=== PATIENT | female | born 1965 | race Caucasian/White ===

== ENCOUNTER → 2024-01-15 13:37 | Outpatient (BNVA) | payer BC, SELFPAY | DX: Z12.39 Encounter for other screening for malignant neoplasm of breast (principal); I10 Essential (primary) hypertension | CPT/HCPCS: 80053; 85025; 93005 ==

== ENCOUNTER 2024-04-13 15:27 | Outpatient (CLI) | payer MEDICAID, SELFPAY ==
[2024-04-13 16:00] LABS: Basophils # 0.1 10^3/uL (0.0-0.1); Basophils % 0.5 %; Eosinophils # 0.2 10^3/uL (0.0-0.8); Eosinophils % 0.9 %; Hematocrit 46.7 % (36-47); Lymphocytes # 5.4 10^3/uL (0.8-4.8); Lymphocytes % 29.7 %; Mean Corpuscular Hemoglobin 31.2 pg (27-33); Mean Corpuscular Volume 94.5 fl (85-98); Mean Platelet Volume 9.7 fL (7.4-10.4); Monocytes # 0.9 10^3/uL (0.2-0.9); Monocytes % 4.7 %; Neutrophils # 11.53 10^3/uL (1.8-7.7); Neutrophils % 63.4 %; Nucleated Red Blood Cells % 0 %; Platelet Count 420 10^3/cmm (157-399); Red Blood Count 4.94 10^6/uL (3.85-5.65); Red Cell Distribution Width 13.5 % (12.1-15.1); White Blood Count 18.19 10^3/uL (3.29-11.43)
[2024-04-13 16:09] LABS: Erythrocyte Sedimentation Rate 28 mm/hr (0-15)
[2024-04-13 16:29] LABS: D Dimer 0.32 ug/mLFEU (0-0.59)
[2024-04-13 16:44] LABS: Slide Review Slide Review Perform
[2024-04-13 16:48] LABS: 25 Hydroxy Vitamin D 28 ng/mL (30-100); Alanine Aminotransferase 21 U/L (0-33); Albumin Level 4.6 g/dL (3.5-5.2); Alkaline Phosphatase 105 U/L (35-105); Aspartate Amino Transferase 17 U/L (0-32); Blood Urea Nitrogen 12 mg/dL (6-20); Calcium 9.1 mg/dL (8.5-10.5); Carbon Dioxide 23 mmol/L (22-29); Chloride 105 mmol/L (98-107); Globulin 2.2 g/dL (1.3-4.6); Glomerular Filtration Rate 86.6 mL/min (90-130); Glucose 98 mg/dL (65-115); Osmolality Calculated 292 mOsm/kg (285-295); Sodium 141 mmol/L (136-145); Total Bilirubin 0.3 mg/dL (0.15-1.2); Total Protein 6.8 g/dL (6.6-8.7)
[2024-04-14 13:04] LABS: COMPLEMENT COMPONENT C3C 165 mg/dL (83-193); COMPLEMENT COMPONENT C4C 31 mg/dL (15-57)
[2024-04-15 07:39] LABS: CENTROMERE B ANTIBODY <1.0 NEG AI (<1.0 NEG); JO-1 ANTIBODY <1.0 NEG AI (<1.0 NEG); RNP ANTIBODY <1.0 NEG AI (<1.0 NEG); SCL-70 ANTIBODY <1.0 NEG AI (<1.0 NEG); SJOGREN'S ANTIBODY (SS-A) <1.0 NEG AI (<1.0 NEG); SM ANTIBODY <1.0 NEG AI (<1.0 NEG); SS-B <1.0 NEG AI (<1.0 NEG)
[2024-04-15 15:18] LABS: COMPLEMENT, TOTAL (CH50) 56 U/mL (31-60)
== END 2024-04-13 15:28 | disposition home or self-care (01) ==
LOC: LAB 15:30
DX: I10 Essential (primary) hypertension (principal); R06.02 Shortness of breath; R21 Rash and other nonspecific skin eruption
CPT/HCPCS: 36415; 80053; 82306; 84443; 85025; 85378; 85651; 86160; 86162; 86235; 86255; 86376; 86431

== ENCOUNTER 2024-04-29 09:52 | Outpatient (CLI) | payer MEDICAID, SELFPAY ==
--- NOTE | 2024-04-29 10:00 | CT_ITS ---
WS: [id number] LDCT LUNG CANCER SCREENING TECHNIQUE: Noncontrast CT of the chest with coronal and sagittal reformatted images. CLINICAL INFORMATION: screening COMPARISON: None. DLP: 56.02 mGy.cm DIvol: Mean CTDIvol: 1.20 (mGy) All CT scans at [facility] use at least one of these dose optimization techniques: automat ed exposure control; mA and/or kV adjustment per patient size (includes targeted exams where dose is matched to clinical indication); or iterative reconstruction. FINDINGS: A few tiny nodules along the RIGHT fissure and LEFT upper lobe. No suspicious pulmonary parenchymal a bnormalities. No mediastinal or hilar lymphadenopathy. No axillary lymphadenopathy. Mild thoracic cur ve. Moderate thoracic kyphosis. Slight bibasilar atelectasis. Cholecystectomy clips. Adrenal glands are normal. Small esophageal hiatal hernia. CT/CT lung screening [id number] IMPRESSION: LUNG-RADS: 2-Benign Appearance or Behavior FOLLOW UP: 12 Month: Continue annual screening with LDCT
== END 2024-04-29 09:53 | disposition home or self-care (01) ==
LOC: RAD 09:52
DX: Z12.2 Encounter for screening for malignant neoplasm of respiratory organs (principal); R91.8 Other nonspecific abnormal finding of lung field; M40.204 Unspecified kyphosis, thoracic region; Z90.49 Acquired absence of other specified parts of digestive tract; K44.9 Diaphragmatic hernia without obstruction or gangrene; F17.200 Nicotine dependence, unspecified, uncomplicated; R06.02 Shortness of breath
CPT/HCPCS: 71271

== ENCOUNTER 2024-05-18 09:33 | Outpatient (CLI) | payer MEDICAID, SELFPAY ==
--- NOTE | 2024-05-18 09:39 | XR_ITS ---
WS: [email or web address] Exam: XR hand LT min 3V* [id number] Date/Time of Exam: 05/18/2024 9:42 AM Reason For Exam: bilateral hand pain No acute fracture. Advanced degenerative changes in the IP joints most severe in the DIP joints. No s oft tissue foreign bodies. XR/XR hand LT min 3V* [id number] IMPRESSION: 1. Moderately advanced degenerative changes most severe involving the DIP joint s.
--- NOTE | 2024-05-18 09:39 | XR_ITS ---
WS: [email or web address] Exam: XR shoulder RT min 2V* [id number] Date/Time of Exam: 05/18/2024 9:42 AM Reason For Exam: right shoulder pain No acute fracture. Moderate degenerative change and arthrosis at the AC joint. Soft tissues are unrem arkable. XR/XR shoulder RT min 2V* [id number] IMPRESSION: 1. Moderate AC joint DJD.
--- NOTE | 2024-05-18 09:39 | XR_ITS ---
WS: [email or web address] Exam: XR KUB [id number] Date/Time of Exam: 05/18/2024 9:42 AM Reason For Exam: bloating No bowel obstruction or free air. No sign of organ enlargement. Signs of prior cholecystectomy. Bony structures are intact. Pelvic calcifications noted probably phleboliths. Faint curvilinear opacity in the RIGHT pelvis may represent vascular calcification but nonspecific. XR/XR KUB [id number] IMPRESSION: 1. No acute abdominal finding.
--- NOTE | 2024-05-18 09:39 | XR_ITS ---
WS: [email or web address] Exam: XR hand RT min 3V* [id number] Date/Time of Exam: 05/18/2024 9:42 AM Reason For Exam: bilateral hand pain No acute fracture. Moderately advanced degenerative changes of the IP joints most severe involving th e DIP joints. No soft tissue foreign bodies are seen. Old avulsion fracture of the ulnar styloid. XR/XR hand RT min 3V* [id number] IMPRESSION: 1. Moderately advanced degenerative changes most severe involving the DIP joint s of all 5 digits. No fractures.
== END 2024-05-18 09:34 | disposition home or self-care (01) ==
LOC: RAD 09:34
DX: M19.011 Primary osteoarthritis, right shoulder (principal); M19.041 Primary osteoarthritis, right hand; M19.042 Primary osteoarthritis, left hand; R14.0 Abdominal distension (gaseous); R76.8 Other specified abnormal immunological findings in serum; M06.9 Rheumatoid arthritis, unspecified
CPT/HCPCS: 73030; 73130; 74018

== ENCOUNTER 2024-06-01 08:20 | Outpatient (CLI) | payer MEDICAID, SELFPAY ==
[2024-06-01] MEDS: iohexol 350 mg/mL 500 mL Btl (per mL) IV (09:30)
[2024-06-01] MEDS: iohexol 350 mg/mL 500 mL Btl (per mL) PO (09:30)
--- NOTE | 2024-06-01 09:30 | CT_ITS ---
WS: [id number] CT ABDOMEN AND PELVIS WITH CONTRAST HISTORY: abdominal pain with bloating TECHNIQUE: Imaging performed of the abdomen and pelvis with IV contrast. Single phase imaging of the abdomen. Coronal and sagittal reformats are submitted. All CT scans at [facility] use at [facility] st one of these dose optimization techniques: automated exposure control; mA and/or kV adjustment per patient size (includes targeted exams where dose is matched to clinical indication); or iterative re construction. IV CONTRAST: Omnipaque 350; 100 mL IV. Oral contrast: Yes. DLP: 361.78 mGy.cm COMPARISON: Lung screening 04/29/2024 Lower thorax: 2 mm perifissural nodule on the RIGHT. No interval change since 04/29/2024. Heart is no rmal size. No hiatal hernia. Liver/biliary system: Normal size with no intrahepatic dilatation. Gallbladder: Status post cholecystectomy. Pancreas: Normal size pancreas and pancreatic duct. No adjacent inflammation. Spleen: Normal size spleen. No mass or infarct. Adrenal glands: Normal. Right kidney: Normal. Left kidney: Normal. Aorta: Mild atherosclerosis with no aneurysm. Lymphadenopathy: None. Free fluid: None. GI tract: Normal stomach. Mild fecalization of the distal small bowel loops. No high-grade obstructio n. No transition site is identified. Fecalization is often seen with areas of mild chronic obstructio n or slow transit of bowel content. Mild diffuse constipation. Prior appendectomy. Abdominal wall: Unremarkable abdominal wall. No hernia. Pelvis: No free fluid or adenopathy within the pelvis. Prior hysterectomy. Bones: Unremarkable. CT/CT abdomen pelvis w con* [id number] IMPRESSION: 1. No acute abdominal or pelvic abnormalities. 2. No ascites or adenopathy. 3. Fecalization in the distal small bowel with no high-grade obstruction. Smal l bowel loops are mildly dilated. Fecalization can be noted in areas of mild, c hronic small bowel obstruction. No definite transition site. 4. Prior cholecystectomy, appendectomy and hysterectomy. No renal obstruction.
== END 2024-06-01 08:21 | disposition home or self-care (01) ==
LOC: RAD 08:22
DX: K56.690 Other partial intestinal obstruction (principal); R91.1 Solitary pulmonary nodule; R10.9 Unspecified abdominal pain; R14.0 Abdominal distension (gaseous); Z90.710 Acquired absence of both cervix and uterus; Z90.49 Acquired absence of other specified parts of digestive tract
CPT/HCPCS: 74177

== ENCOUNTER 2024-07-01 09:20 | Day surgery (SDC) | payer MEDICAID, SELFPAY ==
[2024-07-01 09:34] VITALS: BP 140/78; PULSE 100; RESP 18; TEMP 36.1; O2SAT 96; BMI 31.2
[2024-07-01 10:01] LABS: Glucose Point of Care 112 mg/dL (70-110)
[2024-07-01] MEDS: sodium chloride 0.9% 1,000 ML 30 ML IV (10:08)
--- NOTE | 2024-07-01 10:32 | ANES.PREANE2 ---
Pre-Anesthetic Assessment Height/Weight: Height 5 ft Weight 160 lb Temp Pulse Resp BP Pulse Ox O2 Del Method 97.0 F L 100 18 140/78 96 Room Air 07/01/24 09:34 07/01/24 09:34 07/01/24 09:34 07/01/24 09:34 07/01/24 09:34 07/01/24 09:34 Preop Diagnosis: Screening colonoscopy Operation Date: 07/01/24 10:30 Proposed Procedures p EGD 87642, 09789, G0105, K92.2(Not Applicable) - Isidro Hyatt DO s Colonoscopy(Not Applicable) - Isidro Hyatt DO Was Beta Flip taken within 24 hours: N/A Was Clonidine taken within 24 hours: N/A Last intake: Intake Last Liquid Date 06/30/24 Last Liquid Time 20:00 Last Solid Date 06/29/24 Last Solid Time 20:00 Social Tobacco and No alcohol Exam alert, oriented x 3, clear to auscultation bilaterally and regular rate & rhythm Airway Submandibular: within normal limits Cervical ROM: within normal limits Mallampati: Class III Dentition: full Comments: Comments: Denies any loose teeth Anesthetic Plan ASA status: 3 Anesthesia: MAC Other: No prior issues with anesthesia Completed bowel prep History of hypertension on amlodipine Current smoker Type 2 diabetes on metformin. Preop BS 112 Plan for MAC anesthetic Medications/Allergies Home Medications Medication Instructions Recorded Confirmed Last Taken Type amlodipine 5 mg tablet 5 mg PO DAILY #30 tabs 01/15/24 07/01/24 07/01/24 Rx fluticasone propionate 50 1 spray intranasal DAILY PRN 01/15/24 07/01/24 06/29/24 History mcg/actuation nasal allergies spray,suspension metformin 500 mg tablet 500 mg PO BID #60 tabs 02/12/24 07/01/24 06/30/24 Rx paroxetine HCl 30 mg tablet 30 mg PO DAILY #30 tabs 04/13/24 07/01/24 06/30/24 Rx buspirone 7.5 mg tablet 7.5 mg PO TID PRN Anxiety 06/29/24 07/01/24 06/29/24 History conjugated estrogens 0.3 mg tablet 0.3 mg PO DAILY 06/29/24 07/01/24 06/29/24 History (Premarin) Allergies Allergy/AdvReac Type Severity Reaction Status Date / Time Sulfa (Sulfonamide Allergy Intermediate Hives Verified 07/01/24 09:39 Antibiotics) Contrast Dye Allergy Intermediate Can't Uncoded 07/01/24 09:39 Breath Idodine Allergy Intermediate hives Uncoded 07/01/24 09:39 Current Medications Generic Name Dose Route Start Last Admin Trade Name Freq PRN Reason Stop Dose Admin Sodium Chloride 1,000 mls @ 30 mls/hr 07/01/24 10:00 07/01/24 10:08 Sodium Chloride 0.9% IV 30 mls/hr .Q24H OLIVE Administration PFSH Anesthesia Medical History Small bowel obstruction Abdominal pain Bloating Positive JACK (antinuclear antibody) Current smoker Rash and nonspecific skin eruption Shortness of breath on exertion Erosive osteoarthritis of both hands Leukocytosis, unspecified Anxiety and depression Rheumatoid arthritis previously treated with Hydroxychloroquin Postmenopausal symptoms Hypertension Insulin resistance Screening for breast cancer Degenerative arthritis Rheumatoid aortitis Surgical History History of colonoscopy 2020- tics, hemorrhoids, repeat in 10 years Hx of cholecystectomy Hx of appendectomy History of hysterectomy Social History Smoking and tobacco/nicotine status: current some day tobacco/nicotine user Data Anesthesia Cardiac Studies: No Data to Display
--- NOTE | 2024-07-01 11:23 | W.PM.OPSUD ---
Surgery/Procedure H&P Update DATE OF PROCEDURE: July 01, 2024 DATE H&P PERFORMED: 06/04/24 H&P UPDATE INFORMATION: I have reviewed H&P completed within last 30 days, I have examined patient prior to procedure and No changes to prior documentation PREOP DIAGNOSIS: Screening colonoscopy PLANNED PROCEDURE: Operation Date: 07/01/24 10:30 Proposed Procedures p EGD 35150, 95998, G0105, K92.2(Not Applicable) - DO jordy Perry Colonoscopy(Not Applicable) - Isidro Hyatt DO
[2024-07-01 11:51] VITALS: BP 128/77; PULSE 88; RESP 16; TEMP 36.1; O2SAT 90
--- NOTE | 2024-07-01 11:57 | ANE.PACU2 ---
Inpatient post-anesthesia follow up: Airway intact: Yes Vital signs: Temperature 97 F Pulse Rate 88 Respiratory Rate 16 Blood Pressure 128/77 Pulse Oximetry 90 Oxygen Delivery Me thod Nasal Cannula Oxygen Flow Rate 5 Fraction of Inspir ed Oxygen Hydration adequate: Yes Nausea and vomiting: No Pain level: 1 Mental status: Baseline
[2024-07-01 12:00] VITALS: BP 123/72; PULSE 85; RESP 16; O2SAT 94
[2024-07-01 12:10] VITALS: BP 118/66; PULSE 87; RESP 16; O2SAT 96
[2024-07-01 14:11] LABS: C.Diff PCR (Lab) NEGATIVE (Negative)
== END 2024-07-01 12:27 | disposition home or self-care (01) ==
PROVIDERS: Visit Provider Surgery
PROC: 0DJ08ZZ Inspection of Upper Intestinal Tract, Via Natural or Artificial Opening Endoscopic (ICD-10-PCS; principal; 2024-07-01 10:30)
PROC: 0DJD8ZZ Inspection of Lower Intestinal Tract, Via Natural or Artificial Opening Endoscopic (ICD-10-PCS; CPT 45378; 2024-07-01 10:30)
DX: Z12.11 Encounter for screening for malignant neoplasm of colon (principal); K57.30 Diverticulosis of large intestine without perforation or abscess without bleeding; K64.1 Second degree hemorrhoids; K29.50 Unspecified chronic gastritis without bleeding; I10 Essential (primary) hypertension; E11.9 Type 2 diabetes mellitus without complications; Z79.84 Long term (current) use of oral hypoglycemic drugs; F17.200 Nicotine dependence, unspecified, uncomplicated
CPT/HCPCS: 36416; 43239; 45380; 82274; 82962; 83630; 87045; 87177; 87209; 87427; 87449; 87493; 88305; 88342; J2704; J7030

== ENCOUNTER → 2024-08-11 10:27 | Outpatient (BNVA) | payer MEDICAID, SELFPAY | PROVIDERS: Visit Provider Internal Medicine Rheumatology | DX: R76.8 Other specified abnormal immunological findings in serum (principal); M19.042 Primary osteoarthritis, left hand; M19.041 Primary osteoarthritis, right hand; M19.072 Primary osteoarthritis, left ankle and foot; M19.071 Primary osteoarthritis, right ankle and foot; M77.32 Calcaneal spur, left foot; Z79.899 Other long term (current) drug therapy | CPT/HCPCS: 36415; 73130; 73630; 80076; 82306; 82565; 83036; 83520; 85025; 85651; 86140; 86200; 86480; 86704; 86803; 86812; 87340 ==

== ENCOUNTER 2024-10-07 09:10 | Outpatient (CLI) | payer MEDICAID, SELFPAY ==
[2024-10-07 09:49] LABS: Basophils # 0.1 10^3/uL (0.0-0.1); Basophils % 0.4 %; Eosinophils # 0.2 10^3/uL (0.0-0.8); Eosinophils % 1.3 %; Hematocrit 44.7 % (36-47); Lymphocytes % 25.2 %; Mean Corpuscular HGB Conc 33.1 g/dL (30-55); Mean Corpuscular Hemoglobin 31.6 pg (27-33); Mean Corpuscular Volume 95.3 fl (85-98); Mean Platelet Volume 9.9 fL (7.4-10.4); Monocytes # 0.8 10^3/uL (0.2-0.9); Monocytes % 6.7 %; Neutrophils # 7.79 10^3/uL (1.8-7.7); Neutrophils % 65.6 %; Nucleated Red Blood Cells % 0 %; Platelet Count 333 10^3/cmm (157-399); Red Blood Count 4.69 10^6/uL (3.85-5.65); Red Cell Distribution Width 13.6 % (12.1-15.1); White Blood Count 11.87 10^3/uL (3.29-11.43)
[2024-10-07 10:02] LABS: Erythrocyte Sedimentation Rate 4 mm/hr (0-15)
[2024-10-07 10:15] LABS: Alanine Aminotransferase 18 U/L (0-33); Albumin Level 4.2 g/dL (3.5-5.2); Alkaline Phosphatase 112 U/L (35-105); Aspartate Amino Transferase 16 U/L (0-32); C Reactive Protein 3.4 mg/L (0.0-4.9); Globulin 2.9 g/dL (1.3-4.6); Total Bilirubin 0.2 mg/dL (0.15-1.2); Total Protein 7.1 g/dL (6.6-8.7)
== END 2024-10-07 09:11 | disposition home or self-care (01) ==
LOC: LAB 09:12
PROVIDERS: Visit Provider Internal Medicine Rheumatology
DX: R76.8 Other specified abnormal immunological findings in serum (principal); Z79.899 Other long term (current) drug therapy
CPT/HCPCS: 36415; 80076; 82565; 85025; 85651; 86140

== ENCOUNTER → 2025-04-05 16:26 | Outpatient (BNVA) | payer MEDICAID, SELFPAY | DX: I10 Essential (primary) hypertension (principal) | CPT/HCPCS: 80053; 84443; 85025 ==